=== PATIENT | male | born 1995 | race Caucasian/White ===

== ENCOUNTER 2018-11-27 04:27 | Emergency (ER) | payer BC ==
[~2018-11-27] VITALS: Ht 170.2 cm; Wt 74.8 kg
--- OUTSIDE RECORDS SUMMARY | 2018-11-27 04:37 | XMS REPORT ---
Author Author SHARRON ALFARO Organization [facility] Address [address] [place] [address] Care Team Providers Care Hospice Executive Director Name Role Phone HSARRON ALFARO Unavailable PROBLEMS Type Condition ICD9-CM Code GYR31-MP Code Onset Dates Condition Status SNOMED Code Problem Other chronic pain G89.29 Active [id number] ALLERGIES No Known Allergies ENCOUNTERS Encounter Location Date Diagnosis [facility] [address] [facility] [id number] [id number] Jan, Stiffness of right ankle joint M25.671 IMMUNIZATIONS No Known Immunizations SOCIAL HISTORY Never Assessed REASON FOR VISIT [facility] Adan RN PLAN OF CARE Activity Details Follow Up prn Reason: VITAL SIGNS Height 67 in 2018-02-18 Weight 170.6 lbs 2018-02-18 Temperature 97.8 degrees Fahrenheit 2018-02-18 Heart Rate 106 bpm 2018-02-18 Respiratory Rate 18 2018-02-18 BMI 26.72 kg/m2 2018-02-18 Blood pressure systolic 110 mmHg 2018-02-18 Blood pressure diastolic 68 mmHg 2018-02-18 MEDICATIONS No Known Medications RESULTS No Results PROCEDURES Procedure Date Ordered Result Body Site OPD PRO C W/CON 1ST HR February 18, 2018 COMPUTER DATA ANALYSIS February 18, 2018 INSTRUCTIONS MEDICATIONS ADMINISTERED No Known Medications MEDICAL (GENERAL) HISTORY Type Description Date Surgical History right leg fracture/plates and pins 2013 Hospitalization History Surgery(s) only
--- OUTSIDE RECORDS SUMMARY | 2018-11-27 04:37 | XMS REPORT ---
Author Author RADHA SCHAEFER Organization [facility] Address [address] [place] [address] Care Team Providers Care Studio Control Operator Name Role Phone RADHA SCHAEFER Unavailable PROBLEMS Type Condition ICD9-CM Code ZTE22-EF Code Onset Dates Condition Status SNOMED Code Problem Generalized anxiety disorder F41.1 Active [id number] Problem Panic disorder F41.0 Active 970708386 Problem Other chronic pain G89.29 Active [id number] ALLERGIES No Information ENCOUNTERS Encounter Location Date Diagnosis [facility] [address] [facility] [id number] [id number] Nov, [facility] [id number] [address] Nov, [facility] [address] [facility] [id number] [address] Oct, Generalized anxiety disorder F41.[address] F[address] [facility] [address] [facility] [id number] [id number] Jan, Stiffness of right ankle joint M25.671 IMMUNIZATIONS No Known Immunizations SOCIAL HISTORY Never Assessed REASON FOR VISIT Intake PLAN OF CARE Activity Details Follow Up 3 Weeks Reason: VITAL SIGNS MEDICATIONS Unknown Medications RESULTS No Results PROCEDURES Procedure Date Ordered Result Body Site Psych diagnostic evaluation, established patient Nov 15, 2018 INSTRUCTIONS MEDICATIONS ADMINISTERED No Known Medications MEDICAL (GENERAL) HISTORY Type Description Date Surgical History right leg fracture/plates and pins 2013 Hospitalization History Surgery(s) only
[2018-11-27] MEDS ORDERED: NS IV 1000 ML 1,000 ML IV SCH (04:42)
[2018-11-27] MEDS ORDERED: KETOROLAC 30 MG/ML VIAL IVP ONE (04:45)
[2018-11-27] MEDS ORDERED: ONDANSETRON 4 MG/2 ML (SDV) Z0FRAN IVP ONE (04:45)
[2018-11-27 04:51] LABS: BASOPHILS % (AUTO) 0 % (0-10); EOSINOPHILS # (AUTO) 0.1 10^3/uL (0.0-0.3); EOSINOPHILS % (AUTO) 1 % (0-10); HEMATOCRIT 43 % (40-54); LYMPHOCYTES # (AUTO) 2.5 X 10^3 (1.0-4.0); LYMPHOCYTES % (AUTO) 16 % (12-44); MEAN CORPUSCULAR HEMOGLOBIN 31 PG (25-34); MEAN CORPUSCULAR HGB CONC 35 G/DL (32-36); MEAN CORPUSCULAR VOLUME 88 FL (80-99); MONOCYTES # (AUTO) 1.3 X 10^3 (0.0-1.0); MONOCYTES % (AUTO) 8 % (0-12); NEUTROPHILS # (AUTO) 11.5 X 10^3 (1.8-7.8); NEUTROPHILS % (AUTO) 75 % (42-75); PLATELET COUNT 283 10^3/uL (130-400); RED BLOOD COUNT 4.85 10^6/uL (4.35-5.85); RED CELL DISTRIBUTION WIDTH 13.7 % (10.0-14.5); WHITE BLOOD COUNT 15.3 10^3/uL (4.3-11.0)
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
[2018-11-27 05:10] LABS: ALANINE AMINOTRANSFERASE 22 U/L (0-55); ALBUMIN 5.1 GM/DL (3.2-4.5); ALKALINE PHOSPHATASE 54 U/L (40-136); BILIRUBIN,TOTAL 1.5 MG/DL (0.1-1.0); BUN/CREATININE RATIO 19; CALCIUM 10.5 MG/DL (8.5-10.1); CARBON DIOXIDE 22 MMOL/L (21-32); CHLORIDE 104 MMOL/L (98-107); CREATININE SERUM 1.04 MG/DL (0.60-1.30); GFR ESTIMATED > 60; GLUCOSE 127 MG/DL (70-105); LIPASE 415 U/L (8-78); MAGNESIUM 2.1 MG/DL (1.8-2.4); POTASSIUM 3.7 MMOL/L (3.6-5.0); SODIUM 140 MMOL/L (135-145); TOTAL PROTEIN 8.1 GM/DL (6.4-8.2)
[2018-11-27 05:16] LABS: BAND NEUTROPHILS 1 %; LYMPHOCYTES % (MANUAL) 14 %; MONOCYTES % (MANUAL) 4 %; NEUTROPHILS % (MANUAL) 81 %; RBC MORPH NORMAL
[2018-11-27] MEDS ORDERED: ONDA4TAB11 PO (05:36)
[2018-11-27] MEDS ORDERED: ACHD5005 PO (05:36)
[2018-11-27 05:47] VITALS: BP 158/105
== END 2018-11-27 05:48 | disposition home or self-care (01) ==
LOC: ER 04:34
DX: K85.90 Acute pancreatitis without necrosis or infection, unspecified (principal); Z87.19 Personal history of other diseases of the digestive system
CPT/HCPCS: 36415; 80053; 80320; 83690; 83735; 85007; 85027

== ENCOUNTER 2022-05-17 23:43 | Emergency (ER) | payer OTHER ==
[~2022-05-17] VITALS: Ht 170.2 cm; Wt 77.1 kg
[~2022-05-17 23:43] MED LIST: ACHD5005 PO; ONDA4TAB11 PO
[2022-05-18 00:09] VITALS: BP 129/83
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
[2022-05-18] MEDS ORDERED: ACHD5005 PO (01:20)
--- NOTE | 2022-05-18 06:43 | Diagnostic Imaging Report ---
Indication: Left big toe injury 3 views of the left big toe show a comminuted fracture of the proximal phalanx of the big toe with an oblique component through the shaft extending from the medial cortex of the mid articular surface of the interphalangeal joint. There appears be dorsal angulation the distal component. IMPRESSION: Comminuted and mildly dorsally angulated fracture of the proximal phalanx of the left big toe. Dictated by: Dictated on workstation # [id number]
[2022-05-19] MEDS ORDERED: ACHD5005 PO (17:08)
== END 2022-05-18 01:31 | disposition home or self-care (01) ==
LOC: EDUNIT# 23:43 → ER 23:47
DX: S92.412A Displaced fracture of proximal phalanx of left great toe, initial encounter for closed fracture (principal); V48.9XXA Unspecified car occupant injured in noncollision transport accident in traffic accident, initial encounter; Y92.410 Unspecified street and highway as the place of occurrence of the external cause
CPT/HCPCS: 73660